=== PATIENT | female | born 1990 | race Caucasian/White ===

== ENCOUNTER 2021-01-23 13:36 | Emergency (ER) | payer MEDICAID ==
[~2021-01-23] VITALS: Ht 154.9 cm; Wt 94.0 kg
[2021-01-23] MEDS ORDERED: CYCLOBENZAPRINE 10MG TABLET PO SCH (16:45)
[2021-01-23] MEDS ORDERED: KETOROLAC 60MG/2ML VIAL IM ONE (16:45)
[2021-01-23] MEDS ORDERED: CYCL5TAB MT (17:06)
[2021-01-23 17:07] VITALS: BP 125/66
== END 2021-01-23 17:25 | disposition home or self-care (01) ==
LOC: ER 13:36
DX: M54.5 Low back pain (principal)
CPT/HCPCS: 81025; 96372; 99283; J1885